=== PATIENT | female | born 1955 | race African-American/Black ===

== ENCOUNTER 2023-07-29 17:15 | Emergency (ER) | payer OTHER, MEDICAID ==
[~2023-07-29] VITALS: Ht 175.3 cm; Wt 75.0 kg
[2023-07-29 17:19] VITALS: TEMP 98.6; O2SAT 100
[2023-07-29] MEDS: HYDROCODONE/ACETAMINOPHEN 5/325MG TABLET PO STA (18:49)
[2023-07-29] MEDS: DEXAMETHASONE 4MG/ML 1ML VIAL IM ONE (19:48)
[2023-07-29] MEDS: KETOROLAC 15MG/ML VIAL IV ONE (21:03)
[2023-07-29 21:36] LABS: CLARITY URINE CLEAR (CLEAR); COLOR URINE YELLOW (YELLOW); GLUCOSE URINE NEGATIVE (NEGATIVE); KETONES URINE NEGATIVE (NEGATIVE); LEUKOCYTE ESTERASE URINE NEGATIVE (NEGATIVE); NITRITE URINE NEGATIVE (NEGATIVE); OCCULT BLOOD URINE TRACE (NEGATIVE); PROTEIN URINE NEGATIVE (NEGATIVE); SPECIFIC GRAVITY URINE 1.009 (1.005-1.030); UROBILINOGEN URINE 0.2 E.U./dL (0.2-1.0)
[2023-07-29] MEDS: ONDANSETRON HCL 4MG/2ML INJ IV ONE (21:56)
[2023-07-29 22:24] LABS: BACTERIA URINE NONE SEEN; RBC URINE NONE SEEN /hpf (0-2); SQUAMOUS EPITHELIAL CELL URINE 1+ /lpf (RARE/1+); WBC URINE NONE SEEN /hpf (0-2)
[2023-07-29 23:31] LABS: BASOPHILS % 0.5 % (0.0-2.0); EOSINOPHILS % 0.6 % (0.0-5.0); HEMATOCRIT. 40.9 % (36.0-48.0); HEMOGLOBIN. 13.4 g/dL (12.0-16.0); LYMPHOCYTES % 16.3 % (20.0-50.0); MEAN CORPUSCULAR HEMOGLOBIN 29.7 pg (28.0-32.0); MEAN CORPUSCULAR HGB CONC 32.8 g/dL (31.0-37.0); MEAN CORPUSCULAR VOLUME 90.5 fL (81.0-99.0); MEAN PLATELET VOLUME 7.9 fl (7.4-10.4); MONOCYTES % 1.7 % (2.0-8.0); NEUTROPHILS % 80.9 % (40.0-76.0); PLATELET 233 x1000/uL (130-400); RED BLOOD CELL COUNT 4.52 mill/uL (4.2-5.4); WHITE BLOOD COUNT 5.6 x1000/uL (4.5-11.0)
[2023-07-29 23:38] LABS: CHLORIDE 109 mEq/L (98-107); SODIUM 138 mEq/L (136-145)
[2023-07-29 23:39] LABS: CARBON DIOXIDE 25 mEq/L (21-32)
[2023-07-29] MEDS ORDERED: GABA-534 MT (23:43)
[2023-07-29] MEDS ORDERED: IBUP-2029 MT (23:43)
[2023-07-29] MEDS ORDERED: ACET-2708 MT (23:43)
[2023-07-29 23:45] LABS: CREATININE 0.8 mg/dL (0.6-1.0); GLUCOSE 117 mg/dL (70-105); UREA NITROGEN BLOOD 14 mg/dL (9-23)
[2023-07-29] MEDS: ONDANSETRON HCL 4MG/2ML INJ IV NR (23:47)
[2023-07-30 00:16] VITALS: BP 155/82; PULSE 64; RESP 19
[2023-07-30] MEDS: HYDROCODONE/ACETAMINOPHEN 5/325MG TABLET PO ONE (00:16)
== END 2023-07-30 00:18 | disposition home or self-care (01) ==
LOC: ER 17:15
DX: M54.50 Low back pain, unspecified (principal); I10 Essential (primary) hypertension
CPT/HCPCS: 99285; 74176; 96374; 80048; 81003; 85025; 36415; 96372; J1100; J1885